=== PATIENT | male | born 1960 | race Caucasian/White ===

== ENCOUNTER → 2023-01-09 07:51 | Outpatient (CLI) | payer BC, SELFPAY ==
--- NOTE | 2023-01-09 | DI.NM.S_ITS ---
PROCEDURE: NM EXERCISE TREADMILL NON NUC COMPARISON: None. INDICATIONS: PAROX AFIB / WIDE COMPLET TACHYCARDIA FINDINGS: The patient exercised for 9 minutes and 50 seconds reaching 12.8METs, KYLE -16% and 144% of maximum predicted heart rate. Hypertensive response to exercise. No chest pain and no diagnostic ST changes during exercise and recovery. Frequent PVCs during early recovery. Very brief runs of supraventricular tachycardia noted, fasted being 33 beats long that is probably atrial tachycardia. IMPRESSION: Low risk, normal treadmill ECG only stress test from inducible ischemia standpoint. Frequent PVCs during early recovery. Very brief runs of supraventricular tachycardia noted, fasted being 33 beats long that is probably atrial tachycardia. Dictated by: Chari Reyes MD on 01/09/2023 at 13:31 Approved by: Chari Reyes MD on 01/09/2023 at 13:35
== END ==
PROVIDERS: PCP Family Medicine; Referring Provider Internal Medicine Cardiovascular Disease; Visit Provider Internal Medicine Cardiovascular Disease
DX: I48.0 Paroxysmal atrial fibrillation (principal); R00.0 Tachycardia, unspecified
CPT/HCPCS: 93017